=== PATIENT | female | born 1990 | race Hispanic/Latino ===

== ENCOUNTER → 2022-08-04 14:45 | Outpatient (CLI) | payer OTHER, SELFPAY ==
--- NOTE | 2022-08-04 | DI.US.S_ITS ---
PROCEDURE: US OB >= 14 WEEKS FETUS INDICATIONS: 20 WEEK ANATOMY SCAN OUTSIDE/PRIOR DATING DATA: Unknown last menstrual period First dating scan (date and location): 08/04/2022 today. Estimated date of delivery (IRA) from first dating scan: 12/10/2022. TECHNIQUE: Real-time scanning was performed of the fetus, with image documentation and biometric measurements. Endovaginal scanning: Not performed COMPARISON: None. FINDINGS: General: A single living intrauterine gestation is present. Presentation: Vertex. Placenta: Placental position is anterior , without previa. Amniotic fluid index: 16.5 cm, normal range is 5-24 cm. heart rate: 132 beats per minute. Maternal cervical canal: 3.7 cm biometrics: Biparietal diameter: 5.2 cm Head circumference: 19 cm Abdominal circumference: 17.1 cm Femur length: 3.6 cm Composite gestational age from present scan: 21 weeks and 5 days Estimated weight: 447 g Anatomic survey: Neuro: Ventricles are non-dilated at less than 10 mm. Cisterna magna is normal at 3-11 mm. Cerebellum is normal in size and morphology. Nuchal skin fold: Normal at less than 6 mm between 14-21 weeks gestational age. Face: Nose and lips, facial profile are normal. Spine: No evidence for spina bifida. Heart: 4-chambered heart is present, with normal ventricular outflow tracts. Diaphragm: Diaphragm is intact. Stomach: Left-sided stomach is present. Kidneys: No hydronephrosis. Normal is less than 5 mm in 2nd trimester, less than 7 mm in 3rd trimester. Cord: 3-vessel cord has orthotopic insertion. Bladder: Normal in size. Extremities: All 4 extremities identified. IMPRESSION: Living intrauterine gestation at 21 weeks and 5 days based on today's biometry. Estimated weight is 447 g. Normal and complete routine anatomic survey. We strive to produce accurate, complete, and clear reports of imaging services. To assist us in improving patient care, this report was composed using standard report templates and voice recognition software. Therefore, it may contain abnormal punctuation, insertions and/or omissions. Occasional wrong-word or sound-alike substitutions may occur. Though we review the report and make efforts to correct it, we do recommend that the report be read carefully in proper context to recognize any text inaccuracies. Dictated by: Dwayne Michaels M.D. on 08/04/2022 at 18:02 Approved by: Dwayne Michaels M.D. on 08/04/2022 at 18:06
== END ==
PROVIDERS: Referring Provider Nurse Practitioner Obstetrics & Gynecology; Visit Provider Nurse Practitioner Obstetrics & Gynecology
DX: Z36.89 Encounter for other specified antenatal screening (principal); Z3A.21 21 weeks gestation of pregnancy
CPT/HCPCS: 76811

== ENCOUNTER 2022-12-11 05:40 | Inpatient (IN) | payer OTHER, SELFPAY ==
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
[2022-12-11 07:02] LABS: Add Manual Diff / Slide Review NO; Basophils Absolute Auto 0 /uL (0-100); Basophils Percent Auto 0.4 % (0-2); Eosinophils Absolute Auto 300 /uL (0-450); Eosinophils Percent Auto 2.5 % (2-4); Hematocrit 34.3 % (36-46); Hemoglobin 11.3 g/dL (12.0-16.0); Lymphocytes Absolute Auto 1900 /uL (1100-4500); Lymphocytes Percent Auto 17.5 % (25-40); Mean Corpuscular Volume 90.9 fL (80-100); Monocytes Absolute Auto 800 /uL (0-900); Monocytes Percent Auto 7.5 % (3-14); Neutrophils Absolute Auto 8000 /uL (1500-7000); Neutrophils Percent Auto 72.1 % (50-75); Platelet Count 200 X10^3/uL (150-400); Red Blood Cell Count 3.77 X10^6/uL (4.0-5.2); Red Cell Distribution Width 14.6 % (11.6-14.8); White Blood Cell Count 11.1 X10^3/uL (4.5-11.0)
[2022-12-11 07:14] VITALS: BP 121/74; PULSE 86; TEMP 35.6
[2022-12-11 08:03] VITALS: BP 121/74
--- NOTE | 2022-12-11 14:36 | PM.OBPNLAB ---
Date/Time Date Patient Seen: 12/11/22 Time Patient Seen: 14:36 Pain Control Pain control: tolerating well Comments: Breathing through regular contractions. Feeling more pressure, lower in her pelvis. VS: BP 123/72mmHg, HR 94bpm, T 36.2C Temporal Pelvic Exam Dilation (cm): 8 Effacement (%): 90 station: -1 Amniotic membrane status: Intact Contractions Monitor mode: External Pitocin rate (mU/min): 0 Contraction frequency (min): 4 Contraction duration (min): 1 Contraction pattern: Regular Contraction intensity: Moderate Status Heart Rate Baseline: 135 Comments: Reassuring by intermittent auscultation Assessment and Plan Assessment: active labor Plan: continuous present management Comments: Reassess in 4 hours or sooner, PRN. Anticipate NSVB.
--- NOTE | 2022-12-11 14:44 | PM.OBPNLAB ---
Date/Time Date Patient Seen: 12/11/22 Time Patient Seen: 10:40 Pain Control Pain control: tolerating well Comments: Breathing through regular contractions. Able to rest and eat. Switched to intermittent auscultation after 2 hours of Cat I FHR tracing. VS not yet repeated from admission. Pelvic Exam Dilation (cm): 7 Effacement (%): 90 station: -1 Amniotic membrane status: Intact Contractions Monitor mode: External Pitocin rate (mU/min): 0 Contraction frequency (min): 4 Contraction pattern: Regular Contraction intensity: Moderate Status Heart Rate Baseline: 135 Comments: Reassuring by intermittent auscultation Assessment and Plan Assessment: active labor Plan: continuous present management Comments: Continue expectant management of labor. Labor support PRN. Encourage ambulation. Reassess in 4 hours or sooner, PRN
--- NOTE | 2022-12-11 18:53 | PM.OBPNLAB ---
Date/Time Date Patient Seen: 12/11/22 Time Patient Seen: 18:53 Pain Control Pain control: tolerating well Comments: Laboring well in room, changing position frequently, occasionally ambulating. Feeling occasional rectal pressure. Agreeable to AROM to augment labor. VS: 125/84, HR 86bpm, T 36.0C Temporal Pelvic Exam Dilation (cm): 8 Effacement (%): 90 station: -1 Amniotic membrane status: Ruptured (AROM) Comments: AROM performed for scant clear fluid. Contractions Monitor mode: External Pitocin rate (mU/min): 0 Contraction frequency (min): 5 Contraction pattern: Regular Contraction intensity: Moderate Status Heart Rate Baseline: 138 Comments: Reassuring by intermittent auscultation Assessment and Plan Assessment: active labor Plan: begin patient augmentation Comments: Encouraged continued movement and tub. Labor support PRN. Reassess in 2 hours or sooner, PRN.
--- NOTE | 2022-12-11 22:21 | PM.OBPNLAB ---
Date/Time Date Patient Seen: 12/11/22 Time Patient Seen: 22:23 Pain Control Pain control: epidural (Requested) Comments: Labored well and progressed to spontaneous pushing at 2041. Was examined with AL at that time. ROP position. Over the course of 1 hour of intermittent pushing, AL has not reduced and patient is frustrated and tired. Pelvic Exam Dilation (cm): 9 Effacement (%): 100 station: 0 Amniotic membrane status: Ruptured (AROM) Contractions Monitor mode: Palpation Pitocin rate (mU/min): 0 Contraction frequency (min): 5 Contraction pattern: Regular Contraction intensity: Moderate Status Heart Rate Baseline: 145 Comments: Reassuring by intermittent auscultation Assessment and Plan Assessment: active labor Plan: other Comments: Recommend epidural for labor analgesia. Will discuss options for labor augmentation if AL remains after epidural placement. Reassess once comfortable after epidural placement.
[2022-12-11] MEDS: LACTATED RINGERS 1,000 ML 100 ML IV (22:37)
--- NOTE | 2022-12-12 02:04 | P.PCNOB_ITS ---
Events: Labor Augmentation Labor & Delivery Delivery date: 12/12/22 Intrapartal Events: None and Abnormal Presentation Cervical ripening method: none Induction method: none Delivery augmentation: rupture of membranes Delivery monitor: external FHT and external uterine Route of delivery: Episiotomy description: None L&D Laceration Description: None Quantitative Blood Loss: 200 Anesthesia Type: Epidural Narrative: After complete pain relief from epidural, Leslee was checked and found to be C/C/0. Pushing was initiated after laboring down for 1 hours. Coaching, encouragement and strong maternal efforts led to NSVB of a vigorous baby girl with copious terminal meconium. There was no nuchal cord and the shoulders delivered without additional maneuvers. was placed on maternal abdomen for drying and skin to skin. 30 units of pitocin in 500mL LR was started at 250mL/hr for AMTSL. After cessation of pulsation, the cord was double clamped by CNM and cut by FOB. Gentle cord traction and single maternal push led to spontaneous, Schultze delivery of an apparently intact placenta, membranes and 3VC. Fundus massaged firm and bleeding slowed. Vagina and perineum inspected and intact. QBL 200mL. both mother and baby stable and skin to skin as I left the room. [place] Baby 1: Infant gender: Female Presentation: vertex Position: Left Occiput Anterior Placenta delivery description: Spontaneous Cord Vessel Description: 3 Vessels score (1 min): 8 score (5 min): 9 weight: 3.872 kg Plan for aftercare: Routine care
[2022-12-12] MEDS: KETOROLAC 30 MG/ML VIAL IV (03:58)
[2022-12-12] MEDS: DERMOPLAST SPRAY 20% 60 ML 1 SPRAY TOP (03:59)
[2022-12-12] MEDS: DOCUSATE 100 MG CAPSULE PO (10:15)
[2022-12-12] MEDS: IBUPROFEN 600 MG TABLET PO ×3 (10:15→22:25)
[2022-12-12] MEDS: CALCIUM CARBONATE 500 MG TAB 1000 MG PO (11:44)
[2022-12-12] MEDS: ACETAMINOPHEN 325 MG TABLET 650 MG PO ×2 (16:32→22:25)
[2022-12-12] MEDS: LANOLIN OINT 7 GM 1 APPLIC TOP (22:26)
[2022-12-13] MEDS: IBUPROFEN 600 MG TABLET PO ×2 (04:26→10:49)
[2022-12-13] MEDS: ACETAMINOPHEN 325 MG TABLET 650 MG PO ×2 (04:26→10:49)
[2022-12-13] MEDS: DERMOPLAST SPRAY 20% 60 ML 1 SPRAY TOP (07:42)
[2022-12-13] MEDS: DOCUSATE 100 MG CAPSULE PO (08:13)
--- NOTE | 2022-12-13 10:17 | P.DS_ITS ---
Discharge Providers Provider Date of admission: 12/11/22 05:40 Discharge Date: 12/13/22 Primary care physician: Yue Hart MD Consults: 12/13/22 02:02 Consult to Flight Operations Coordinator Routine Comment: Discharge provider: Laura Medel CNM Summary Hospital Course Date Patient Seen: 12/13/22 Time Patient Seen: 10:18 Diagnoses: O80 Hospital Course: PPD1 s/p NSVB: Voiding, ambulating and independently though with some discomfort. Tolerating a general diet. Vaginal bleeding is light, without clots. Pain is well controlled with PO medication. Feeling ready for discharge to home, but might need more support d/t sore nipples. Peripartum Data Infant Delivery Method: Natural Vaginal Laceration Description: None Episiotomy description: None Procedures: O80 1: Gender: Female Disposition of : home Discharge Diagnosis (1) Encounter for full-term uncomplicated delivery: Status: Acute Status at Discharge Cognitive/behavioral status at discharge: oriented and calm Functional status at discharge: independent ambulation Overall status at discharge: patient is progressing back to baseline Time Spent with Patient Time attestation: Total time spent providing and/or coordinating discharge services: Time spent: Less than 30 minutes Objective Labs 12/11/22 06:45 Exam Vital Signs (past 8 hours): BP 114/67, HR 87bpm, RR 17/min, T 97.6F Temporal Other: Fundus firm @ U-2, lochia scant. Perineum intact. Discharge Plan Discharge Plan Patient Disposition: Home Discharge orders & Medications Prescriptions: New ibuprofen 600 mg Tablet 600 mg PO Q6HR PRN (Reason: Pain, Mild (1-3)) 14 Days Qty: 60 0RF Follow up/Referrals: Yue Hart MD [Primary Care Provider] - Laura Medel CNM [Advanced Lead Technologist In [employer]] - (Follow up with [facility] 12/15/22 @ 4pm Follow-up in office or by Telehealth (you let us know) 12/24/22 @ 1115am Follow-up in office 01/21/23 @ 1115am) Diet/Activity/Treatments Diet: Diet as Tolerated and Regular Activity: pelvic rest x 6 weeks Skin/Wound/Dressing Care Report to your healthcare provider any signs of infection, such as:: chills, fever, increased pain, unusual drainage and unusual redness Visit Report/Discharge Packet Instructions: Depression Stand Alone Forms: Patient Portal/API Discharge Data Primary Care Provider: Yue Hart
== END 2022-12-13 12:45 | disposition home or self-care (01) | DRG 807 ==
PROVIDERS: Admitting Provider Nurse Practitioner Obstetrics & Gynecology; PCP Family Medicine; Referring Provider Nurse Practitioner Obstetrics & Gynecology; Visit Provider Nurse Practitioner Obstetrics & Gynecology
DX: O80 Encounter for full-term uncomplicated delivery (principal); Z37.0 Single live birth; Z3A.39 39 weeks gestation of pregnancy
CPT/HCPCS: 36415; 59025; 59050; 59200; 76815; 85025; 86850; 86900; 86901; G0379; J1885

== ENCOUNTER → 2025-05-09 17:01 | Outpatient (CLI) | payer OTHER, SELFPAY ==
--- NOTE | 2025-05-09 17:04 | DI.US.S_ITS ---
PROCEDURE: US OB <= 14 WEEKS FETUS INDICATIONS: VIABILITY. POSSIBLE MISCARRIAGE. OUTSIDE/PRIOR DATING DATA: Last menstrual period (LMP): 03/28/2025 LMP-based estimated date of delivery (IRA): 01/02/2026 First dating scan (date and location): 05/09/2025 Estimated date of delivery (IRA) from first dating scan: 01/01/2026 TECHNIQUE: Real-time scanning was performed of the fetus and maternal pelvic organs, with image documentation. Endovaginal scanning was also performed to better visualize the fetus and maternal ovaries. COMPARISON: None. FINDINGS: Embryo: Single intrauterine gestational sac is seen with fetus and yolk sac noted. [place] Tak-rump length measures 4.4 mm. Estimated gestational age of 6 weeks, 1 day. Heart rate: 119 beats per minute. Maternal organs: Ovaries are visualized and are within normal limits. IMPRESSION: 1. Single live intrauterine gestation with fetus and yolk sac seen. Estimated gestational age is 6 weeks, 1 day. heart rate is 119 beats per minute. 2. Normal appearing bilateral ovaries. We strive to produce accurate, complete, and clear reports of imaging services. To assist us in improving patient care, this report was composed using standard report templates and voice recognition software. Therefore, it may contain abnormal punctuation, insertions and/or omissions. Occasional wrong-word or sound-alike substitutions may occur. Though we review the report and make efforts to correct it, we do recommend that the report be read carefully in proper context to recognize any text inaccuracies. Dictated by: Bebo Angela M.D. on 05/09/2025 at 18:19 Approved by: Bebo Angela M.D. on 05/09/2025 at 18:20
== END ==
LOC: US 17:03
PROVIDERS: PCP Family Medicine; Referring Provider Advanced Practice Midwife; Visit Provider Advanced Practice Midwife
DX: O36.80X0 Pregnancy with inconclusive fetal viability, not applicable or unspecified (principal)
CPT/HCPCS: 76801; 76817